=== PATIENT | female | born 1995 | race African-American/Black ===

== ENCOUNTER 2025-03-02 05:50 | Inpatient (IN) | payer OTHER, SELFPAY ==
[2025-02-27 11:00] LABS: Hematocrit 32.3 % (34.9-44.5); Hemoglobin 10.4 g/dL (12.0-15.5); Platelet Count 177 10x3/uL (150-450)
[2025-02-27 11:35] LABS: HIV (1/2) Antibody/Antigen Non-Reactive (NonReactive); HIV 1/2 INDEX 0.15 S/CO (<1.00); Hep B Surf Ag Non-Reactive S/CO (NonReactive); Syphilis Antibody Index 0.12 S/CO (<1.00 Non-Reactive)
[~2025-03-02 05:50] MED LIST: Bicitra 30 ML UDCUP PO PRN; Diphenoxylate HCl/Atropine Tablet PO PRN; Famotidine/PF 20 mg/2ml Vial SLOW IVP PRN; Methylergonovine 0.2 MG/ML VIAL IM PRN; Ondansetron PF 4 MG/2 ML Vial IVP PRN; Oxytocin 30 units/NS 500 ML 500 ML IV SCH; Tranexamic Acid 1,000 MG/10 ML VIAL IVP PRN; hydrALAZINE 20 MG/ML VIAL SLOW IVP PRN
[2025-03-02] MEDS ORDERED: Bicitra 30 ML UDCUP PO PRN (06:05)
[2025-03-02] MEDS ORDERED: Famotidine/PF 20 mg/2ml Vial SLOW IVP PRN (06:06)
[2025-03-02 06:33] VITALS: BMI 28.0
[2025-03-02] MEDS ORDERED: Lanolin Ointment 7 GM TUBE TOP PRN (09:02)
[2025-03-02] MEDS ORDERED: hydrALAZINE 20 MG/ML VIAL SLOW IVP PRN (09:02)
[2025-03-02] MEDS ORDERED: Bisacodyl 10 MG SUPP PR PRN (09:02)
[2025-03-02] MEDS ORDERED: Ondansetron PF 4 MG/2 ML Vial IVP PRN ×3 (09:02→09:30)
[2025-03-02] MEDS ORDERED: Acetaminophen 325 MG TAB PO PRN (09:02)
[2025-03-02] MEDS ORDERED: Oxytocin 30 units/NS 500 ML 500 ML IV SCH (09:15)
[2025-03-02] MEDS ORDERED: diphenhydrAMINE 50 MG/ML VIAL IVP PRN (09:30)
[2025-03-02] MEDS ORDERED: Meperidine HCl/PF 25 MG (1 mL) VIAL SLOW IVP PRN (09:30)
[2025-03-02] MEDS ORDERED: HYDROmorphone 0.5 MG/0.5 ML SYRINGE SLOW IVP PRN (09:30)
[2025-03-02] MEDS ORDERED: Communication Order-Pharmacy FS SCH (09:30)
[2025-03-02] MEDS ORDERED: Ketorolac Tromethamine 30 MG (1 mL) VIAL IVP SCH (09:30)
[2025-03-02] MEDS: Tranexamic Acid 1,000 MG/10 ML VIAL ONE (11:28)
[2025-03-02] MEDS: Methylergonovine 0.2 MG/ML VIAL IM PRN (12:15)
[2025-03-02] MEDS: Diphenoxylate HCl/Atropine Tablet PO PRN (12:48)
[2025-03-02] MEDS: Carboprost 250 MCG/ML AMP IM PRN (12:48)
[2025-03-02 13:02] LABS: #Basophils Less than 0.03 10x3/uL (0.0-0.2); #Eosinophils Less than 0.03 10x3/uL (0.0-0.5); #Monocytes 0.55 10x3/uL (0.0-1.1); #Neutrophils 9.36 10x3/uL (1.5-8.4); %Basophils 0.1 % (0.0-2.0); %Eosinophils 0.1 % (0.0-6.0); %Lymphocytes 12.6 % (18.0-47.0); %Monocytes 4.8 % (0.0-10.0); %Neutrophils 82.0 % (40.0-75.0); Hematocrit 26.3 % (34.9-44.5); Hemoglobin 8.3 g/dL (12.0-15.5); Mean Corpuscular Hemoglobin 27.3 pg (27.0-33.0); Mean Corpuscular Volume 86.5 fL (81.6-98.3); Platelet Count 153 10x3/uL (150-450); Red Blood Cell (RBC) Count 3.04 10x6/uL (3.90-5.03); White Blood Cell (WBC) Count 11.41 10x3/uL (3.5-10.5)
[2025-03-02 13:04] LABS: Platelet Count 153 10x3/uL (130-400)
[2025-03-02 13:15] LABS: D-Dimer Test 3.94 mcg/mL (0.19-0.50); Fibrinogen 330 mg/dL (220-504); INR-International Normal Ratio 1.0; PTT 31.6 sec (22.0-33.0); Prothrombin Time 10.6 sec (9.5-12.1)
[2025-03-02] MEDS: Ketorolac Tromethamine 30 MG (1 mL) VIAL IVP PRN (14:41)
[2025-03-02 14:51] LABS: Hep C IgG Ab NONREACTIVE S/CO (NonReactive); Hep C Index 0.10 S/CO (0-0.79)
[2025-03-02] MEDS: Ibuprofen 800 MG TAB PO SCH (18:43)
[2025-03-02] MEDS: Oxytocin 10 UNITS/ML VIAL ONE (19:31)
[2025-03-02] MEDS: PHENYLEPHRINE-NS 100 MCG/ML 10 ML SYRINGE ONE (19:32)
[2025-03-03 03:42] LABS: Hematocrit 24.0 % (34.9-44.5); Hemoglobin 7.9 g/dL (12.0-15.5); Mean Corpuscular Hemoglobin 27.3 pg (27.0-33.0); Mean Corpuscular Volume 83.0 fL (81.6-98.3); Platelet Count 142 10x3/uL (150-450); Red Blood Cell (RBC) Count 2.89 10x6/uL (3.90-5.03); White Blood Cell (WBC) Count 10.59 10x3/uL (3.5-10.5)
[2025-03-03] MEDS: HYDROcodone/Acetaminophen 5/325 mg Tablet PO PRN (05:10)
[2025-03-03] MEDS: Simethicone Chewable 80 MG TAB PO PRN (08:40)
[2025-03-03 11:21] LABS: Hematocrit 23.0 % (34.9-44.5); Hemoglobin 7.6 g/dL (12.0-15.5)
[2025-03-03] MEDS: Sodium Ferric Gluconate 250 MG in Sodium Chloride 0.9% 250 ML 250 ML IVPB SCH (15:11)
[2025-03-04 07:27] LABS: Hematocrit 21.9 % (34.9-44.5); Hemoglobin 7.2 g/dL (12.0-15.5)
[2025-03-04] MEDS: Ferrous Sulfate 325 MG TAB PO SCH (08:20)
[2025-03-04 10:54] LABS: Glucose, Urine (Dipstick) Normal (Negative); Leukocyte Negative (Negative); Protein, Urine (Dipstick) Negative (Neg-Trace); Specific Gravity, Urine 1.010 (1.005-1.030)
[2025-03-04 11:02] LABS: Bacteria/HPF None Seen HPF (None Seen); CAUTI Indications for Culture Dysuria,urgency,freq; RBC/HPF 0-3 HPF (0-3); WBC/HPF None Seen HPF (0-3)
[2025-03-04 11:03] LABS: Urine Culture Reflex No No
[2025-03-04 20:37] LABS: Hematocrit 29.6 % (34.9-44.5); Hemoglobin 9.9 g/dL (12.0-15.5)
[2025-03-05] MEDS ORDERED: Acetaminophen 325 MG TAB PO PRN (07:05)
[2025-03-05] MEDS ORDERED: HYDROcodone/Acetaminophen 5/325 mg Tablet PO PRN (07:05)
[2025-03-05] MEDS: Acetaminophen 325 MG TAB PO SCH (07:47)
[2025-03-05 08:18] VITALS: BP 131/67; TEMP 98.2
== END 2025-03-05 16:10 | disposition home or self-care (01) | DRG 787 ==
LOC: CSHLD 05:50 → CSHPP 16:45
PROVIDERS: ADMIT Obstetrics & Gynecology; ATTEND Obstetrics & Gynecology
PROC: 10D00Z1 Extraction of Products of Conception, Low, Open Approach (ICD-10-PCS; principal; 2025-03-02)
PROC: 30233N1 Transfusion of Nonautologous Red Blood Cells into Peripheral Vein, Percutaneous Approach (ICD-10-PCS; 2025-03-02)
DX: O99.02 Anemia complicating childbirth (principal); N39.0 Urinary tract infection, site not specified; O72.1 Other immediate postpartum hemorrhage; O23.43 Unspecified infection of urinary tract in pregnancy, third trimester; Z3A.37 37 weeks gestation of pregnancy; Z37.0 Single live birth
CPT/HCPCS: 36415; 36430; 51702; 81001; 85014; 85018; 85025; 85027; 85049; 85300; 85362; 85384; 85610; 85730; 86780; 86803; 86850; 86900; 86901; 87340; 87389; J1885; J2210; J2274; J2550; J2590; J2916; J3010; J3490; J7050; P9016